=== PATIENT | female | born 1970 | race American Indian/Alaskan Native ===

== ENCOUNTER 2016-09-13 01:11 | Emergency (ER) | payer SELFPAY ==
[2016-09-13] MEDS ORDERED: MOTRIN PO ONE (04:02)
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
--- NOTE | 2016-09-13 04:02 | XRay Report ---
FINAL REPORT PROCEDURE: XR WRIST 3 LT TECHNIQUE: LEFT wrist radiographs, including AP, lateral, oblique, and navicular views. HISTORY: fall onto wrist pain and swelling COMPARISON: No prior studies are available for comparison. FINDINGS: Fracture(s)and/or Dislocation(s): None. Alignment: Normal. Joint space(s): Normal. Soft tissues: Mild soft tissue swelling. Bone mineralization: Normal. Foreign bodies: None. IMPRESSION: There is no evidence of an acute fracture. Mild diffuse soft tissue swelling.
[2016-09-13 05:44] VITALS: BP 145/89
== END 2016-09-13 05:46 | disposition home or self-care (01) ==
LOC: ED 01:11
DX: S63.502A Unspecified sprain of left wrist, initial encounter (principal); S69.92XA Unspecified injury of left wrist, hand and finger(s), initial encounter; J45.909 Unspecified asthma, uncomplicated; Z85.830 Personal history of malignant neoplasm of bone; W19.XXXA Unspecified fall, initial encounter; Y93.89 Activity, other specified; Y99.9 Unspecified external cause status; Y92.89 Other specified places as the place of occurrence of the external cause